=== PATIENT | male | born 1990 | race Caucasian/White ===

== ENCOUNTER 2016-10-21 20:05 | Emergency (ER) | payer SELFPAY ==
[~2016-10-21] VITALS: Ht 177.8 cm; Wt 65.0 kg
[~2016-10-21 20:05] MED LIST: NICOTINE PATCH1 EAC2 TD
[2016-10-21 20:22] VITALS: BP 124/84
== END 2016-10-21 22:50 | disposition left against medical advice (07) ==
LOC: EME 20:05
DX: R20.0 Anesthesia of skin (principal); Z53.21 Procedure and treatment not carried out due to patient leaving prior to being seen by health care provider; F11.10 Opioid abuse, uncomplicated; R04.0 Epistaxis; F17.200 Nicotine dependence, unspecified, uncomplicated

== ENCOUNTER 2016-10-23 17:50 | Observation (INO) | payer SELFPAY ==
[~2016-10-23] VITALS: Ht 177.8 cm; Wt 65.2 kg
[2016-10-23 19:32] LABS: ADD MIUA? NO; BILIRUBIN NEGATIVE; BLOOD NEGATIVE; COLOR YELLOW ((YELLOW)); GLUCOSE (STRIP) NEGATIVE; KETONES NEGATIVE; LEUKOCYTES NEGATIVE; NITRITE NEGATIVE; PROTEIN (STRIP) NEGATIVE; SPECIFIC GRAVITY 1.016 (1.000-1.030); UROBILINOGEN 0.2 MG/DL (0.2-1.0)
[2016-10-23 19:35] LABS: HEMATOCRIT 42.2 % (38.0-50.0); MCH 31.2 PG (29.0-34.0); MCHC 34.4 G/DL (30.0-36.0); MCV 90.8 FL (86-99); MEAN PLAT.VOLUME 10.2 uM^3 (9.0-12.4); PLATELET COUNT 272 K/uL (156-360); RBC DIS.WIDTH-CV 12.7 % (11.8-14.6); RBC DIS.WIDTH-SD 41.7 % (39-53); RED BLOOD COUNT 4.65 M/uL (4.00-5.50); WHITE BLOOD COUNT 8.5 K/uL (4.1-10.2)
[2016-10-23 19:58] LABS: ADD MEDTOX COMMENT Y; AMPHETAMINE NEGATIVE (500 ng/mL); BARBITURATES NEGATIVE (200 ng/mL); BENZODIAZEPINES PRESUMPTIVE POSITIVE (150 ng/mL); COCAINE PRESUMPTIVE POSITIVE (150 ng/mL); INTERNAL CONTROLS VALID? YES; METHADONE NEGATIVE (200 ng/mL); METHAMPHETAMINE NEGATIVE (500 ng/mL); OPIATES (MORPHINE) NEGATIVE (100 ng/mL); OXYCODONE NEGATIVE (100 ng/mL); PHENCYCLIDINE NEGATIVE (25 ng/mL); PROPOXYPHENE NEGATIVE (300 ng/mL); THC CANNABINOIDS NEGATIVE (50 ng/mL); TRICYCLIC ANTIDEPRESSANTS NEGATIVE (300 ng/mL)
[2016-10-23 20:03] LABS: CHLORIDE 105 mEq/L (99-109); SODIUM 139 mEq/L (136-147)
[2016-10-23 20:05] LABS: GLUCOSE 123 mg/dL (70-99)
[2016-10-23 20:06] LABS: ANION GAP 8 MEQ/L (2-14)
[2016-10-23 20:09] LABS: GFR ESTIMATE (CALCULATED) > 59 mL/min/
[2016-10-23 20:10] LABS: UREA NITROGEN (BUN) 16 mg/dL (9-23)
[2016-10-23 20:11] LABS: CREATINE KINASE 113 IU/L (1-294)
[2016-10-23 20:39] LABS: BENZODIAZEPINES, URINE SCREEN POSITIVE (200 ng/mL)
[2016-10-23 22:13] LABS: HDL CHOLESTEROL 28 MG/DL (Desirable>=40); LDL CHOLESTEROL 82 mg/dL (Desirable<100); NON-HDL CHOLESTEROL 101 mg/dL (Desirable<160); SERUM ETHYL ALCOHOL < 10 mg/dL; TOTAL CHOLESTEROL 129 mg/dL (Desirable<200); TRIGLYCERIDES 94 MG/DL (Normal: <150)
[2016-10-23 22:20] LABS: Estimated Average Glucose 111 mg/dL (70-123); HEMOGLOBIN A1c (GLYCOHEMOGLOB) 5.5 % HGB (Below 5.7)
[2016-10-23 23:08] VITALS: BP 118/70
[2016-10-24 03:06] VITALS: BP 109/53
[2016-10-24 08:00] VITALS: BP 110/54
== END 2016-10-24 10:09 | disposition home or self-care (01) ==
LOC: EME 17:50 → EDOF 21:39 → 5WEST 23:06
PROVIDERS: Physician Assistant; Physician Assistant Medical
DX: R20.0 Anesthesia of skin (principal); R07.0 Pain in throat; F32.9 Major depressive disorder, single episode, unspecified; F41.9 Anxiety disorder, unspecified; B19.20 Unspecified viral hepatitis C without hepatic coma; F11.10 Opioid abuse, uncomplicated; F14.10 Cocaine abuse, uncomplicated; F17.210 Nicotine dependence, cigarettes, uncomplicated
CPT/HCPCS: 70360; 70450; 70491; 80048; 80061; 81003; 82550; 83036; 84439; 84443; 84999; 85027; 87651 90; 93005; 99281; 99285; G0378; G0480

== ENCOUNTER 2016-12-10 10:50 | Emergency (ER) | payer SELFPAY ==
[~2016-12-10] VITALS: Ht 177.8 cm; Wt 73.0 kg
[2016-12-10] MEDS ORDERED: LEVOFLOXACIN750 MG PO (13:17)
[2016-12-10] MEDS ORDERED: PERCOCET 5/31 TABLET PO (13:18)
[2016-12-10 14:30] VITALS: BP 128/74
== END 2016-12-10 14:47 | disposition home or self-care (01) ==
LOC: EME 10:50
DX: S61.341A Puncture wound with foreign body of left index finger with damage to nail, initial encounter (principal); S61.343A Puncture wound with foreign body of left middle finger with damage to nail, initial encounter; S62.613A Displaced fracture of proximal phalanx of left middle finger, initial encounter for closed fracture; Z23 Encounter for immunization; Y99.0 Civilian activity done for income or pay; W29.4XXA Contact with nail gun, initial encounter
CPT/HCPCS: 73130; 99281; 99283; J2060; J2270

== ENCOUNTER 2017-06-28 03:56 | Emergency (ER) | payer OTHER ==
[~2017-06-28] VITALS: Ht 177.8 cm; Wt 74.6 kg
[~2017-06-28 03:56] MED LIST changes: +LEVOFLOXACIN750 MG PO; +PERCOCET 5/31 TABLET PO
[2017-06-28 04:54] LABS: HEMATOCRIT 40.4 % (38.0-50.0); MCH 31.9 PG (29.0-34.0); MCHC 35.9 G/DL (30.0-36.0); MEAN PLAT.VOLUME 10.3 uM^3 (9.0-12.4); PLATELET COUNT 201 K/uL (156-360); RBC DIS.WIDTH-CV 12.5 % (11.8-14.6); RBC DIS.WIDTH-SD 40.6 % (39-53); RED BLOOD COUNT 4.54 M/uL (4.00-5.50); WHITE BLOOD COUNT 7.4 K/uL (4.1-10.2)
[2017-06-28 05:04] LABS: CHLORIDE 106 mEq/L (99-109); POTASSIUM 3.7 mEq/L (3.7-5.4); SODIUM 138 mEq/L (136-147)
[2017-06-28 05:07] LABS: ANION GAP 7 MEQ/L (2-14)
[2017-06-28 05:16] LABS: TROP-I INTERPRETATION NEGATIVE; TROPONIN-I < 0.01 ng/mL (0.0-0.30)
[2017-06-28 05:17] LABS: D-DIMER ELISA < 150.00 ng/mLDDU (<230)
[2017-06-28 05:31] LABS: GLUCOSE 99 mg/dL (70-99)
[2017-06-28 05:34] LABS: GFR ESTIMATE (CALCULATED) > 59 mL/min/ (58.99-99999)
[2017-06-28 05:35] LABS: UREA NITROGEN (BUN) 12 mg/dL (9-23)
[2017-06-28 05:59] VITALS: BP 131/62
== END 2017-06-28 05:59 | disposition home or self-care (01) ==
LOC: EME 03:56
PROVIDERS: Emergency Medicine
DX: R07.89 Other chest pain (principal); M79.602 Pain in left arm; R11.0 Nausea; I45.10 Unspecified right bundle-branch block; Z82.49 Family history of ischemic heart disease and other diseases of the circulatory system; F17.200 Nicotine dependence, unspecified, uncomplicated
CPT/HCPCS: 71020; 80048; 84484; 85027; 85379; 93005; 99281; 99284